=== PATIENT | female | born 1980 | race Caucasian/White ===

== ENCOUNTER 2021-06-21 17:22 | Emergency (ER) | payer BC, OTHER ==
[~2021-06-21] VITALS: Ht 165.1 cm; Wt 59.9 kg
[2021-06-21] MEDS ORDERED: LORA-259 PO (17:42)
--- NOTE | 2021-06-21 17:45 | NUR ---
DELMA From Home RA78 "Anxiety/depression- Family issues. Denies suicidal ideation. Placed comfortably in bed. Vitals checked.
[2021-06-21] MEDS ORDERED: LORAZEPAM 1 MG TABLET PO ONE (18:00)
[2021-06-21] MEDS ORDERED: LORAZEPAM 1 MG TABLET ONE (18:08)
--- NOTE | 2021-06-21 18:15 | NUR ---
ABBY AGUSTIN ORDERED TO HOLD THE COVID SWAB. PATIENT AWARE
--- NOTE | 2021-06-21 18:26 | NUR ---
Patient discharged to home in stable condition. Written and verbal after care instructions given. Patient verbalizes understanding of instruction.
[2021-06-21 18:27] VITALS: BP 150/90
== END 2021-06-21 18:27 | disposition home or self-care (01) ==
LOC: ER 17:27
DX: F41.9 Anxiety disorder, unspecified (principal); F32.A Depression, unspecified; Z79.899 Other long term (current) drug therapy

== ENCOUNTER 2021-11-13 13:40 | Emergency (ER) | payer BC ==
[~2021-11-13] VITALS: Ht 165.1 cm; Wt 59.0 kg
[~2021-11-13 13:40] MED LIST: LORA-259 PO
--- NOTE | 2021-11-13 14:04 | NUR ---
CALLED TO TRIAGE,NO ANSWER
[2021-11-13] MEDS ORDERED: LORAZEPAM 0.5 MG TABLET PO ONE (15:00)
[2021-11-13] MEDS ORDERED: LORAZEPAM 0.5 MG TABLET ONE (15:12)
--- NOTE | 2021-11-13 15:27 | NUR ---
Patient discharged to home in stable condition. Written and verbal after care instructions given. Patient verbalizes understanding of instruction.
[2021-11-13 15:39] VITALS: BP 132/84
== END 2021-11-13 15:40 | disposition home or self-care (01) ==
LOC: ER 13:43
DX: F41.9 Anxiety disorder, unspecified (principal); F32.A Depression, unspecified; Z79.899 Other long term (current) drug therapy